=== PATIENT | female | born 1990 | race Asian ===

== ENCOUNTER 2019-10-28 15:20 | Emergency (ER) | payer BC ==
[~2019-10-28] VITALS: Ht 167.6 cm; Wt 77.1 kg
[2019-10-28 15:27] VITALS: TEMP 98.3
[2019-10-28 16:33] LABS: POTASSIUM 3.5 mmol/L (3.6-5.2)
[2019-10-28 16:40] LABS: PLATELET COUNT 140 K/uL (152-353)
[2019-10-28 17:05] VITALS: BP 112/70
== END 2019-10-28 17:05 | disposition home or self-care (01) ==
LOC: ED 15:20
DX: U07.1 COVID-19 (principal); B34.9 Viral infection, unspecified
CPT/HCPCS: 80053; 85027; 87635; 93005; 99283; U00003

== ENCOUNTER 2019-12-30 15:12 | Outpatient (CLI) | payer BC, OTHER | END 2019-12-30 23:17 | disposition home or self-care (01) | LOC: RAD 15:12 | DX: Z03.818 Encounter for observation for suspected exposure to other biological agents ruled out (principal) ==